=== PATIENT | female | born 1990 | race Asian ===

== ENCOUNTER → 2020-09-27 | Outpatient (CLI) | payer BC ==
--- NOTE | 2020-09-27 12:50 | US ---
EXAMINATION TYPE: US gallbladder DATE OF EXAM: 09/27/2020 COMPARISON: NONE CLINICAL HISTORY: K81.1 Chronic cholecystitis. Patient states she gets pain after she eats. Patient states weight loss. EXAM MEASUREMENTS: Liver Length: 13.5 cm Gallbladder Wall: 0.1 cm CBD: 0.4 cm Right Kidney: 9.0 x 4.2 x 5.1 cm Pancreas: wnl Liver: wnl Gallbladder: wnl Evidence for sonographic Michel's sign: neg CBD: wnl Right Kidney: medial upper cystic lesion = 1.4 x 1.3 x 1.4 cm. Upper medial echogenic focus- 0.7 cm IMPRESSION: Right nephrolithiasis and a 1.4cm likely right renal cyst, amenable to followup.
--- NOTE | 2020-09-27 16:28 | NM ---
EXAMINATION TYPE: NM hepatobiliary w EF DATE OF EXAM: 09/27/2020 COMPARISON: Ultrasound gallbladder 09/27/2020 HISTORY: K 81.1 TECHNIQUE: After the intravenous administration of 4.9 mCi Tc 99m Mebrofenin hepatobiliary scintigrap hy is performed. Immediate images post injection. FINDINGS: There is satisfactory initial accumulation of tracer by the liver. The gallbladder is visualized wit hin 12 minutes. The small bowel activity is noted within 20 minutes. At one hour 8 ounces of oral e nsure plus is given to mimic CCK and gallbladder ejection fraction is calculated at 77 %, in the norm al range. Therefore there is no scintigraphic evidence of cystic or common bile duct obstruction to suggest acute cholecystitis or gallbladder dyskinesia. IMPRESSION: Exam is within normal limits.
== END | disposition home or self-care (01) ==
LOC: RADUSWWP 12:06
PROVIDERS: ATTEND Surgery Plastic and Reconstructive Surgery
DX: N20.0 Calculus of kidney (principal); K81.1 Chronic cholecystitis
CPT/HCPCS: 76705; 78226; A9537

== ENCOUNTER 2020-09-28 08:51 | Day surgery (SDC) | payer BC ==
[2020-09-13 08:32] VITALS: BMI 21.9
--- NOTE | 2020-09-28 08:38 | P.GSHP ---
History of Present Illness H&P Date: 09/28/20 CHIEF COMPLAINT: GERD and gastrointestinal bleeding HISTORY OF PRESENT ILLNESS: The patient is a 30-year-old female who presents with gastritis and gastrointestinal bleeding . Upper and lower endoscopy were offered for further evaluation and management. PAST MEDICAL HISTORY: Please see list. PAST SURGICAL HISTORY: Please see list. MEDICATIONS: Please see list. ALLERGIES: Please see list. SOCIAL HISTORY: No illicit drug use FAMILY HISTORY: No reports of Crohn disease or ulcerative colitis. REVIEW OF ORGAN SYSTEMS: CONSTITUTIONAL: No reports of fevers or chills. PHYSICAL EXAM: VITAL SIGNS: Stable GENERAL: Well-developed pleasant in no acute distress. HEENT: No scleral icterus. Extraocular movements grossly intact. Moist buccal mucosa. NECK: Supple without lymphadenopathy. CHEST: Unlabored respirations. Equal bilateral excursions. CARDIOVASCULAR: Regular rate and rhythm. Distal 2+ pulses. ABDOMEN: Soft, nondistended. MUSCULOSKELETAL: No clubbing, cyanosis, or edema. ASSESSMENT: 1. Gastritis 2. Gastrointestinal bleeding PLAN: 1. Recommend proceeding with an upper and lower endoscopy Past Medical History Additional Past Medical History / Comment(s): lymes disease, mononucleosis, abdominal pain History of Any Multi-Drug Resistant Organisms: None Reported Past Surgical History: No Surgical Hx Reported Additional Past Anesthesia/Blood Transfusion Reaction / Comment(s): has never had anesthesia Smoking Status: Former smoker - Past Family History Father History Unknown: Yes Additional Family Medical History / Comment(s): pt adopted unkown family hx Medications and Allergies Home Medications Medication Instructions Recorded Confirmed Type Control Pill 1 tab PO HS 09/13/20 09/26/20 History Omeprazole 20 mg PO DAILY 09/13/20 09/26/20 History Allergies Allergy/AdvReac Type Severity Reaction Status Date / Time Sulfa (Sulfonamide Allergy Nausea & Verified 09/26/20 14:13 Antibiotics) Vomiting
[~2020-09-28 08:51] MED LIST: LACTATED RINGERS 1,000 ML IV SCH
[2020-09-28 09:44] VITALS: RESP 16; TEMP 99.2
[2020-09-28] MEDS ORDERED: LIDOCAINE 1% (10MG/ML) FOR IV START INTRADERMA ONE (09:49)
[2020-09-28] MEDS ORDERED: MIDAZOLAM 2 MG/2 ML VIAL ONE (10:03)
[2020-09-28] MEDS ORDERED: PROPOFOL 10 MG/ML 20 ML VIAL IV ONE (10:03)
[2020-09-28] MEDS ORDERED: LIDOCAINE 1% INJ 10MG/ML (20 ML MDV) ONE (10:03)
[2020-09-28 10:45] VITALS: BP 109/69; PULSE 59
--- NOTE | 2020-09-28 10:47 | P.PCN ---
Date of Procedure: 09/28/20 Description of Procedure: PREOPERATIVE DIAGNOSIS: Gastritis Gastroesophageal reflux disease. POSTOPERATIVE DIAGNOSIS: Gastritis. Gastroesophageal reflux disease. OPERATION: Esophagogastroduodenoscopy with biopsies along antrum. SURGEON: Fabiana Murphy MD ANESTHESIA: MAC. INDICATIONS: The patient is a 30-year-old female who presents with a history of gastritis. Benefits and risks of the procedure were described. Informed consent was obtained. DESCRIPTION: The patient was brought into the endoscopy suite and laid in the left lateral decubitus position. An Olympus gastroscope was passed along the posterior oropharynx down to the distal esophagus where the squamocolumnar junction was encountered at 36 cm from the incisors. The stomach was entered and no bile reflux was found. Additional findings are listed below. Biopsies with cold forceps were obtained of the antrum. The first through third portion of the duodenum was examined and unremarkable. Retroflexion of the scope confirmed Hill grade 2 lower esophageal valve. The squamocolumnar junction demonstrated LA grade A erosive esophagitis. The stomach was desufflated. The patient tolerated the procedure well. FINDINGS: Squamocolumnar junction 36 cm from the incisors. Diaphragmatic hiatus at 36 cm. Hill grade 2 lower esophageal valve. LA grade A erosive esophagitis. No active duodenitis. Chronic gastritis RECOMMENDATIONS: Upper endoscopy as needed.
--- NOTE | 2020-09-28 10:49 | P.PCN ---
Date of Procedure: 09/28/20 Description of Procedure: PREOPERATIVE DIAGNOSIS: Change in bowel habit History of rectal bleeding for colitis POSTOPERATIVE DIAGNOSIS: Change in bowel habit History of rectal bleeding for colitis OPERATION: Colonoscopy to the cecum, ileocecal valve and appendiceal orifice. Colonoscopy with random cold forceps biopsy for microscopic colitis SURGEON: Fabiana Murphy MD. ANESTHESIA: MAC. INDICATIONS: The patient is a 30-year-old female who presents with rectal bleeding and colitis. Benefits and risks were described and informed consent was obtained. DESCRIPTION OF PROCEDURE: The patient had undergone Sutab prep. The patient had been brought into the operating room and laid in the left lateral decubitus position. After adequate intravenous sedation, the rectum was examined with 2% lidocaine jelly. No external hemorrhoids were encountered. The rectal tone was within normal limits. No lesions were palpated in the rectal vault. An Olympus colonoscope was advanced until the cecum, ileocecal valve and appendiceal orifice were clearly viewed. The prep was excellent. No scattered diverticulosis was encountered. No colonic polyps were found. Random cold forceps biopsies were obtained for microscopic colitis. Retroflexion of the scope demonstrated grade 1 internal hemorrhoids without active bleeding or inflammation. The colon was desufflated. The patient had tolerated the procedure well. Withdrawal time was over 6 minutes. FINDINGS: Aronchick preparation quality scale 1 (1-5) Internal hemorrhoids, grade 1 No external prolapsed hemorrhoids. No arteriovenous malformations. No adenomatous polyps. Random biopsies obtained for microscopic colitis RECOMMENDATIONS: Lower endoscopy as needed Plan - Discharge Summary Discharge Rx Participant: No New Discharge Prescriptions: Continue Omeprazole 20 mg PO DAILY Control Pill 1 tab PO HS Discharge Medication List Control Pill 1 tab PO HS 09/13/20 [History] Omeprazole 20 mg PO DAILY 09/13/20 [History] Follow up Appointment(s)/Referral(s): Fabiana Murphy MD [STAFF PHYSICIAN] - 10/04/20 Patient Instructions/Handouts: *[facility] - (Anesthesia) Endoscopy Discharge Instructions, Colonoscopy (GEN), Upper Endoscopy (DC) Discharge Disposition: HOME SELF-CARE
== END 2020-09-28 11:36 | disposition home or self-care (01) ==
LOC: ORWHC2ENDO 08:51
PROVIDERS: ATTEND Surgery Plastic and Reconstructive Surgery
DX: K29.50 Unspecified chronic gastritis without bleeding (principal); R19.5 Other fecal abnormalities; K64.0 First degree hemorrhoids; K21.9 Gastro-esophageal reflux disease without esophagitis; Z86.19 Personal history of other infectious and parasitic diseases; Z87.891 Personal history of nicotine dependence; Z79.3 Long term (current) use of hormonal contraceptives; Z79.899 Other long term (current) drug therapy; Z88.2 Allergy status to sulfonamides
CPT/HCPCS: 81025; 88305; 45380; 43239; J2250; J2001; J2704

== ENCOUNTER → 2020-10-21 | Outpatient (CLI) | payer BC ==
[2020-10-21 18:49] LABS: T4, Free (Free Thyroxine) 1.2 ng/dL (0.80-1.80)
== END | disposition home or self-care (01) ==
LOC: LABWHC1 07:29
PROVIDERS: ATTEND Family Medicine
DX: E03.9 Hypothyroidism, unspecified (principal)
CPT/HCPCS: 36415; 84439; 84443; 84480